=== PATIENT | female | born 1985 | race Caucasian/White ===

== ENCOUNTER 2017-03-02 10:22 | Emergency (ER) | payer MEDICAID ==
[~2017-03-02] VITALS: Ht 160 cm; Wt 50.0 kg
[2017-03-02 10:25] VITALS: BP 113/78
[2017-03-02] MEDS ORDERED: METHOCARBAMOL 750 MG TABLET ONE (11:07)
[2017-03-02] MEDS ORDERED: METHOCARBAMOL 750 MG TABLET PO ONE (11:30)
== END 2017-03-02 12:24 | disposition home or self-care (01) ==
LOC: ED 12:04
DX: M54.12 Radiculopathy, cervical region (principal)
CPT/HCPCS: 72050; 99284; J7512

== ENCOUNTER 2017-10-07 20:27 | Emergency (ER) | payer MEDICAID ==
[~2017-10-07] VITALS: Ht 167.6 cm; Wt 55.0 kg
[~2017-10-07 20:27] MED LIST: NORE-40 PO
[2017-10-07 21:08] LABS: BASOPHILS # (AUTO) 0.06 x10^3/uL (0-0.1); BASOPHILS % (AUTO) 1 % (0-1); EOSINOPHILS # (AUTO) 0.17 x10^3/uL (0-0.4); EOSINOPHILS % (AUTO) 2 % (1-7); LYMPHOCYTES % (AUTO) 41 % (22-44); MD NO; MEAN CORPUSCULAR HEMOGLOBIN 30.3 pg (27.0-34.8); MEAN CORPUSCULAR HGB CONC 34.7 g/dL (32.4-35.8); MEAN CORPUSCULAR VOLUME 87.5 fL (80-100); MEAN PLATELET VOLUME 8.1 fL (7.4-10.4); MONOCYTES # (AUTO) 0.57 x10^3/uL (0.2-0.8); MONOCYTES % (AUTO) 7 % (2-9); NEUTROPHILS # (AUTO) 3.89 x10^3/uL (1.8-6.8); NEUTROPHILS % (AUTO) 49 % (42-75); PLATELET COUNT 331 x10^3/uL (130-400); RED BLOOD COUNT 4.19 x10^6/uL (3.82-5.3)
[2017-10-07 21:19] LABS: ALBUMIN 3.6 g/dL (3.4-5.0); ANION GAP 11 mmol/L (5-15); CALCIUM 8.9 mg/dL (8.5-10.1); CHLORIDE 111 mmol/L (98-107); CREATININE 0.71 mg/dL (0.55-1.02)
[2017-10-07 21:23] LABS: TROPONIN I < 0.015 ng/mL (0.000-0.045)
[2017-10-07 21:53] VITALS: BP 104/63
== END 2017-10-07 21:55 | disposition home or self-care (01) ==
LOC: ED 21:49
DX: R07.89 Other chest pain (principal); F17.200 Nicotine dependence, unspecified, uncomplicated
CPT/HCPCS: 36415; 71045; 80048; 82040; 84484; 85025; 93005; 99285

== ENCOUNTER 2019-05-01 17:35 | Emergency (ER) | payer MEDICAID, OTHER ==
[~2019-05-01] VITALS: Ht 160 cm; Wt 64.6 kg
[2019-05-01 17:44] VITALS: BP 131/81
--- NOTE | 2019-05-01 19:02 | NUR ---
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
[2019-05-01 19:28] LABS: ALANINE AMINOTRANSFERASE 36 U/L (12-78); ALBUMIN 4.4 g/dL (3.4-5.0); ANION GAP 8 mmol/L (5-15); CALCIUM 9.1 mg/dL (8.5-10.1); CHLORIDE 110 mmol/L (98-107); CREATININE 0.57 mg/dL (0.55-1.02)
[2019-05-01 19:38] LABS: BASOPHILS # (AUTO) 0.03 x10^3/uL (0-0.1); BASOPHILS % (AUTO) 0 % (0-1); EOSINOPHILS # (AUTO) 0.23 x10^3/uL (0-0.4); EOSINOPHILS % (AUTO) 2 % (1-7); LYMPHOCYTES # (AUTO) 2.84 x10^3/uL (1-3.4); LYMPHOCYTES % (AUTO) 29 % (22-44); MD NO; MEAN CORPUSCULAR HEMOGLOBIN 30.4 pg (27.0-34.8); MEAN CORPUSCULAR HGB CONC 33.9 g/dL (32.4-35.8); MEAN CORPUSCULAR VOLUME 89.9 fL (80-100); MEAN PLATELET VOLUME 7.5 fL (7.4-10.4); MONOCYTES % (AUTO) 7 % (2-9); NEUTROPHILS % (AUTO) 61 % (42-75); PLATELET COUNT 410 x10^3/uL (130-400); RED BLOOD COUNT 4.76 x10^6/uL (3.82-5.3); RED CELL DISTRIBUTION WIDTH 13.5 % (9.6-15.2)
[2019-05-01 19:46] LABS: ALKALINE PHOSPHATASE 106 U/L (45-117); BILIRUBIN,TOTAL 0.1 mg/dL (0.2-1.0); TOTAL PROTEIN 8.6 g/dL (6.4-8.2)
[2019-05-01 20:15] LABS: MICROSCOPIC AUTO
[2019-05-01 20:16] LABS: CULTURE INDICATED? NO
== END 2019-05-01 20:52 | disposition home or self-care (01) ==
LOC: ED 20:00
DX: O03.4 Incomplete spontaneous abortion without complication (principal); R10.2 Pelvic and perineal pain; Z87.891 Personal history of nicotine dependence
CPT/HCPCS: 36415; 76801; 80053; 81001; 84702; 85025; 86901; 99284

== ENCOUNTER 2019-07-31 12:20 | Emergency (ER) | payer OTHER ==
[~2019-07-31] VITALS: Ht 160 cm; Wt 65.0 kg
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
[2019-07-31] MEDS ORDERED: [UNRECOGNIZED DRUG - OTHER] (12:37)
[2019-07-31] MEDS ORDERED: PRENATAL (12:37)
[2019-07-31] MEDS ORDERED: VITAMIN B6 (12:37)
--- NOTE | 2019-07-31 13:33 | NUR ---
WAITING FOR PROVIDE TO EVALUATE PT.
--- NOTE | 2019-07-31 13:38 | NUR ---
PT AMBULATED TO THE RESTROOM WITH A STEADY GAIT.
[2019-07-31 14:11] LABS: BASOPHILS # (AUTO) 0.05 x10^3/uL (0-0.1); BASOPHILS % (AUTO) 1 % (0-1); EOSINOPHILS % (AUTO) 1 % (1-7); LYMPHOCYTES # (AUTO) 1.92 x10^3/uL (1-3.4); LYMPHOCYTES % (AUTO) 22 % (22-44); MD NO; MEAN CORPUSCULAR HEMOGLOBIN 30.5 pg (27.0-34.8); MEAN CORPUSCULAR HGB CONC 34.2 g/dL (32.4-35.8); MEAN CORPUSCULAR VOLUME 89.1 fL (80-100); MEAN PLATELET VOLUME 7.6 fL (7.4-10.4); MONOCYTES # (AUTO) 0.57 x10^3/uL (0.2-0.8); MONOCYTES % (AUTO) 6 % (2-9); NEUTROPHILS # (AUTO) 6.24 x10^3/uL (1.8-6.8); NEUTROPHILS % (AUTO) 70 % (42-75); PLATELET COUNT 431 x10^3/uL (130-400); RED BLOOD COUNT 4.34 x10^6/uL (3.82-5.3); RED CELL DISTRIBUTION WIDTH 14.1 % (9.6-15.2)
[2019-07-31 14:23] LABS: ALBUMIN 3.9 g/dL (3.4-5.0); ANION GAP 8 mmol/L (5-15); CALCIUM 8.9 mg/dL (8.5-10.1); CHLORIDE 108 mmol/L (98-107); CREATININE 0.59 mg/dL (0.55-1.02)
--- NOTE | 2019-07-31 14:45 | NUR ---
PT TALKING ON PHONE TO FAMILY MEMBER. AWAITING US.
[2019-07-31] MEDS ORDERED: ACETAMINOPHEN 325 MG SUPP ONE (14:54)
[2019-07-31] MEDS ORDERED: ACETAMINOPHEN 325 MG TABLET ONE (14:54)
--- NOTE | 2019-07-31 14:56 | NUR ---
PT MEDICATED PER EMAR. US TECH AT BEDSIDE GOING TO TRANSPORT PT TO US VIA GURNEY.
[2019-07-31] MEDS ORDERED: ACETAMINOPHEN 325 MG TABLET PO ONE (15:00)
--- NOTE | 2019-07-31 15:45 | NUR ---
UA SENT TO LAB.
--- NOTE | 2019-07-31 15:58 | NUR ---
FER AT BEDSIDE GOING OVER US WITH PT.
[2019-07-31 16:02] VITALS: BP 112/74
[2019-07-31 16:17] LABS: CULTURE INDICATED? NO; MICROSCOPIC NOT IND
--- NOTE | 2019-07-31 17:13 | NUR ---
WAITING FOR DC PAPERWORK FROM FER.
--- NOTE | 2019-07-31 17:27 | NUR ---
PT DC HOME IN A STABLE CONDITION. DC INSTRUCTIONS WERE DISCUSSED WITH PT. PT VERBALIZED UNDERSTANDING. NO FURTHER QUESTIONS OR CONCERNS EXPRESSED AT THAT TIME. PT AMBULATED WITH RN TO DC DESK. STEADY GAIT.
== END 2019-07-31 17:28 | disposition home or self-care (01) ==
LOC: ED 12:48
DX: O26.891 Other specified pregnancy related conditions, first trimester (principal); Z3A.01 Less than 8 weeks gestation of pregnancy
CPT/HCPCS: 36415; 76801; 80048; 81003; 82040; 84702; 85025; 86901; 99284

== ENCOUNTER 2019-08-05 06:50 | Day surgery (SDC) | payer OTHER ==
[~2019-08-05] VITALS: Ht 160 cm; Wt 65.9 kg
[~2019-08-05 06:50] MED LIST changes: +PRENATAL; +VITAMIN B6; +[UNRECOGNIZED DRUG - OTHER]
[2019-08-05 07:11] VITALS: BP 109/66
[2019-08-05] MEDS ORDERED: PLEASE ENTER HEIGHT AND WEIGHT MC SCH (07:30)
[2019-08-05] MEDS ORDERED: MIDAZOLAM 1 MG/ML, 2ML ONE (07:40)
[2019-08-05] MEDS ORDERED: DEXAMETHASONE 4 MG/ML, 1ML ONE ×2 (07:41→08:21)
[2019-08-05] MEDS ORDERED: FENTANYL PF 250 MCG/5ML ONE (07:41)
[2019-08-05] MEDS ORDERED: SUCCINYLCHOLINE 20 MG/ML, 10ML ONE (07:44)
[2019-08-05] MEDS ORDERED: PROPOFOL 10 MG/ML, 20ML ONE (07:44)
[2019-08-05] MEDS ORDERED: ALBUTEROL SULFATE 2.5 MG/3 ML NPPB PRN (08:00)
[2019-08-05] MEDS ORDERED: MEPERIDINE/PF 25MG/0.5ML IVPush PRN (08:00)
[2019-08-05] MEDS ORDERED: ACETAMINOPHEN 500 MG TABLET PO ONE (08:00)
[2019-08-05] MEDS ORDERED: FENTANYL PF 100 MCG/2ML IV PRN (08:00)
[2019-08-05] MEDS ORDERED: PROMETHAZINE 25 MG/ML, 1ML IVPush PRN (08:00)
[2019-08-05] MEDS ORDERED: DIPHENHYDRAMINE 50 MG/ML, 1ML IVPush PRN (08:00)
[2019-08-05] MEDS ORDERED: PROMETHAZINE 12.5 MG SUPP PR PRN (08:00)
[2019-08-05] MEDS ORDERED: EPHEDRINE 50 MG/ML, 1ML IVPush PRN (08:00)
[2019-08-05] MEDS ORDERED: OXYcodone 5 MG/5 ML ORAL.SOL UDC PO PRN ×2 (08:00→11:30)
[2019-08-05] MEDS ORDERED: GABAPENTIN 300 MG CAPSULE PO ONE (08:00)
[2019-08-05] MEDS ORDERED: MIDAZOLAM 1 MG/ML, 2ML IV PRN (08:00)
[2019-08-05] MEDS ORDERED: HYDROmorphone 1 MG/ML, 1ML INJ IVPush PRN (08:00)
[2019-08-05] MEDS ORDERED: ONDANSETRON 2MG/ML, 2ML IVPush PRN ×2 (08:00→11:30)
[2019-08-05] MEDS ORDERED: hydrALAzine 20 MG/ML, 1ML IV PRN (08:00)
[2019-08-05] MEDS ORDERED: DIAZEPAM 5 MG/ML, 2ML IVPush PRN (08:00)
[2019-08-05] MEDS ORDERED: LABETALOL 5MG/ML, 20ML IV PRN (08:00)
[2019-08-05] MEDS ORDERED: CEFAZOLIN PMX 2GM/50ML 50 ML IVPB ONE (08:00)
[2019-08-05 08:07] VITALS: BP 109/60
[2019-08-05] MEDS ORDERED: CHLORHEXIDINE 15 ML UDC ONE (08:12)
[2019-08-05] MEDS ORDERED: BUPIVACAINE/PF 0.25% ONE (08:12)
[2019-08-05 08:21] LABS: MEAN CORPUSCULAR HEMOGLOBIN 30.3 pg (27.0-34.8); MEAN CORPUSCULAR HGB CONC 33.4 g/dL (32.4-35.8); MEAN CORPUSCULAR VOLUME 90.6 fL (80-100); MEAN PLATELET VOLUME 7.7 fL (7.4-10.4); PLATELET COUNT 422 x10^3/uL (130-400); RED BLOOD COUNT 4.45 x10^6/uL (3.82-5.3); RED CELL DISTRIBUTION WIDTH 13.9 % (9.6-15.2)
[2019-08-05] MEDS ORDERED: ROCURONIUM 10MG/ML,5ML ONE (08:21)
[2019-08-05] MEDS ORDERED: CEFAZOLIN 1,000 MG ONE (08:21)
[2019-08-05] MEDS ORDERED: ONDANSETRON 2MG/ML, 2ML ONE (08:21)
[2019-08-05] MEDS ORDERED: KETOROLAC 30 MG/1 ML ONE (08:21)
[2019-08-05] MEDS ORDERED: BUPIVACAINE/PF 0.25% INFIL ONE (08:46)
[2019-08-05] MEDS ORDERED: FENTANYL PF 100 MCG/2ML ONE ×3 (08:50→10:07)
[2019-08-05] MEDS ORDERED: SUGAMMADEX 200 MG/2 ML IVPush ONE (09:31)
[2019-08-05] MEDS ORDERED: MEPERIDINE/PF 100 MG/ML ONE (10:07)
[2019-08-05] MEDS ORDERED: OXYcodone 5 MG/5 ML ORAL.SOL UDC ONE (10:07)
[2019-08-05 10:59] VITALS: BP 107/68
[2019-08-05] MEDS ORDERED: KETOROLAC 30 MG/1 ML IV PRN (11:30)
[2019-08-05] MEDS ORDERED: LACTATED RINGERS 1,000 ML IV SCH (11:30)
[2019-08-05 12:47] VITALS: BP 102/70
[2019-08-05 15:00] VITALS: BP 98/62
== END 2019-08-05 15:32 | disposition home or self-care (01) ==
LOC: OR 06:50 → UNDOADMIN 06:50 → 4NE 06:50 → UNDODISIN 15:32 → OR 15:32 → EDSTATUS 08-07 10:04
PROVIDERS: ATTEND Obstetrics & Gynecology
DX: O00.80 Other ectopic pregnancy without intrauterine pregnancy (principal); N83.12 Corpus luteum cyst of left ovary; D25.2 Subserosal leiomyoma of uterus; Z79.1 Long term (current) use of non-steroidal anti-inflammatories (NSAID); Z79.891 Long term (current) use of opiate analgesic; Z79.899 Other long term (current) drug therapy; Z88.1 Allergy status to other antibiotic agents; Z88.5 Allergy status to narcotic agent; Z82.3 Family history of stroke; Z82.49 Family history of ischemic heart disease and other diseases of the circulatory system; Z83.49 Family history of other endocrine, nutritional and metabolic diseases
CPT/HCPCS: 36415; 59100; 85027; 86850; 86900; 88305; C1765; J0330; J0690; J1100; J1885; J2175; J2250; J2405; J2704; J3010; J3490; J7120; G0378

== ENCOUNTER 2020-10-23 20:18 | Emergency (ER) | payer OTHER ==
[~2020-10-23] VITALS: Ht 160 cm; Wt 59.0 kg
[2020-10-23 20:38] VITALS: BP 130/66
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
[2020-10-23 21:11] LABS: BASOPHILS % (AUTO) 0 % (0-1); EOSINOPHILS % (AUTO) 1 % (1-7); LYMPHOCYTES % (AUTO) 27 % (22-44); MEAN CORPUSCULAR HEMOGLOBIN 30.4 pg (27.0-34.8); MEAN CORPUSCULAR HGB CONC 34.4 g/dL (32.4-35.8); MEAN PLATELET VOLUME 7.5 fL (7.4-10.4); MONOCYTES % (AUTO) 6 % (2-9); NEUTROPHILS % (AUTO) 66 % (42-75); PLATELET COUNT 387 x10^3/uL (130-400); RED BLOOD COUNT 4.01 x10^6/uL (3.82-5.3); RED CELL DISTRIBUTION WIDTH 13.6 % (9.6-15.2)
[2020-10-23 21:22] LABS: ALBUMIN 3.7 g/dL (3.4-5.0); ANION GAP 9 mmol/L (5-15); CHLORIDE 111 mmol/L (98-107)
[2020-10-23 21:39] LABS: CREATININE 0.47 mg/dL (0.55-1.02)
[2020-10-23 22:32] LABS: MICROSCOPIC INDICATED
--- NOTE | 2020-10-23 22:38 | NUR ---
PATIENT SLEEPING ON GURNEY, NAD AT THIS TIME, DENIES ANY NEEDS. SIGNIFICANT OTHER AT BEDSIDE.
--- NOTE | 2020-10-23 23:36 | NUR ---
Patient given discharge instructions and they have confirmed that they understand the instructions. Patient ambulatory with steady gait. NAD, all questions answered appropriately, denies additional needs at this time. No personal belongings left in room after discharge.
== END 2020-10-23 23:38 | disposition home or self-care (01) ==
LOC: ED 20:48
DX: O20.0 Threatened abortion (principal); O23.11 Infections of bladder in pregnancy, first trimester; Z3A.12 12 weeks gestation of pregnancy
CPT/HCPCS: 36415; 76830; 80048; 81001; 82040; 84702; 85025; 86901; 87086; 99284

== ENCOUNTER 2020-10-31 12:38 | Emergency (ER) | payer OTHER ==
[~2020-10-31] VITALS: Ht 160 cm; Wt 59.1 kg
[2020-10-31 13:06] VITALS: BP 116/68
--- NOTE | 2020-10-31 14:01 | NUR ---
QUILL REAMER: PT TO ROOM FROM [facility]
[2020-10-31 14:31] LABS: BASOPHILS % (AUTO) 1 % (0-1); EOSINOPHILS % (AUTO) 1 % (1-7); LYMPHOCYTES % (AUTO) 18 % (22-44); MEAN PLATELET VOLUME 7.5 fL (7.4-10.4); MONOCYTES % (AUTO) 5 % (2-9); NEUTROPHILS % (AUTO) 76 % (42-75); PLATELET COUNT 406 x10^3/uL (130-400); RED BLOOD COUNT 4.24 x10^6/uL (3.82-5.3); RED CELL DISTRIBUTION WIDTH 13.4 % (9.6-15.2)
== END 2020-10-31 15:21 ==
LOC: ED 12:50
DX: O20.0 Threatened abortion (principal); Z3A.13 13 weeks gestation of pregnancy
CPT/HCPCS: 36415; 76801; 84702; 85025; 99284